=== PATIENT | female | born 1990 | race African-American/Black ===

== ENCOUNTER 2019-08-01 23:44 | Observation (INO) ==
[2019-08-02] MEDS ORDERED: MORPHINE 4 MG/1 ML VIAL IV PRN (02:16)
[2019-08-02] MEDS ORDERED: ONDANSETRON 4 MG/2 ML VIAL IV PRN (02:17)
[2019-08-02] MEDS ORDERED: SODIUM CHLORIDE 0.9% 1,000 ML IV SCH (02:30)
[2019-08-02 05:41] LABS: Basophils % 0.3 % (0.0-0.8); Eosinophils % 0.2 % (0.00-10.9); Hematocrit 36.3 VOL% (35.7-47.0); Immature Granulocytes % 0.4 %; Immature Granulocytes Absolute 0.05 #; Lymphocytes # 1.6 10*3/uL (1.4-4.0); Mean Corpuscular HGB Conc 33.1 GM/DL (32-36); Mean Platelet Volume 11.8 FL (9.6-12.0); Monocytes % 6.3 % (1.7-12.7); Neutrophils % 79.8 % (38.7-73.9); Platelet Count 228 T/CUMM (130-400); Red Blood Count 4.22 MC/CUMM (3.8-5.5); Red Cell Distribution Width 14.2 % (9.3-17.3); White Blood Count 12.2 T/CUMM (4-12)
[2019-08-02 05:42] LABS: Albumin 3.9 G/DL (3.4-5.0); Bilirubin,Total 0.6 MG/DL (0.2-1.0); Calcium 8.8 MG/DL (8.5-10.1); Osmolality,Calculated 278.3 MOS/KG (273-304); Total Protein 7.4 G/DL (6.4-8.3)
[2019-08-02] MEDS ORDERED: LACTATED RINGERS 1,000 ML IV SCH (06:00)
[2019-08-02] MEDS ORDERED: ceFAZolin 1,000 MG VIAL ONE (06:16)
[2019-08-02] MEDS ORDERED: TRIAMCINOLONE ACETONIDE 40 MG/1 ML VIAL ONE (06:20)
[2019-08-02] MEDS ORDERED: propofoL 200 MG/20 ML VIAL IV ONE (06:47)
[2019-08-02] MEDS ORDERED: fentaNYL 100 MCG/2 ML VIAL ONE (06:48)
[2019-08-02] MEDS ORDERED: MIDAZOLAM 2 MG/2 ML VIAL ONE (06:48)
[2019-08-02] MEDS ORDERED: SEVOFLURANE 1 UNIT/15 MINUTE INH ONE (06:48)
[2019-08-02] MEDS ORDERED: DEXAMETHASONE 4 MG/1 ML VIAL ONE (06:48)
[2019-08-02] MEDS ORDERED: LIDOCAINE 2% 5 ML VIAL ONE (06:48)
[2019-08-02] MEDS ORDERED: ONDANSETRON 4 MG/2 ML VIAL ONE (06:49)
[2019-08-02] MEDS: KETOROLAC 30 MG/1 ML VIAL IV SCH ×2 (08:30→15:26)
[2019-08-02] MEDS ORDERED: cephALEXin 500 MG CAPSULE PO SCH (10:30)
[2019-08-02 11:17] VITALS: BP 109/63
[2019-08-02] MEDS ORDERED: INFLUENZA VIRUS VACCINE 0.5 ML SYRINGE IM ONE (14:12)
== END 2019-08-02 15:15 | disposition home or self-care (01) ==
LOC: N.EDINP 23:44 → N.ED 23:44 → N.OB 08-02 03:33
PROVIDERS: ADMIT Obstetrics & Gynecology; ATTEND Obstetrics & Gynecology

== ENCOUNTER 2020-07-01 13:35 | Inpatient (IN) ==
[2020-07-01] MEDS ORDERED: SODIUM CHLORIDE 0.9% 1,000 ML IV STA ×2 (15:56→16:52)
[2020-07-01 16:16] LABS: Basophils % 0.3 % (0.0-0.8); Eosinophils # 0.2 10*3/uL (0.0-0.87); Eosinophils % 2.5 % (0.00-10.9); Hematocrit 39.3 VOL% (35.7-47.0); Hemoglobin 13.4 GM/DL (12.0-16.0); Immature Granulocytes % 0.4 %; Immature Granulocytes Absolute 0.03 #; Lymphocytes # 1.1 10*3/uL (1.4-4.0); Mean Corpuscular HGB Conc 34.1 GM/DL (32-36); Mean Corpuscular Volume 84.3 FL (87-102); Monocytes % 13.2 % (1.7-12.7); Neutrophils % 68.6 % (38.7-73.9); Platelet Count 233 T/CUMM (130-400); Red Blood Count 4.66 MC/CUMM (3.8-5.5); Red Cell Distribution Width 14.2 % (9.3-17.3); White Blood Count 7.3 T/CUMM (4-12)
[2020-07-01 16:23] LABS: Blood, Urine Negative (Negative); Glucose,Urine (UA) Negative (Negative); Ketones,Urine Negative (Negative); Mucus,Urine Occasional /LPF (Occasional); Nitrite,Urine Negative (Negative); Protein,Urine 30 MG/DL; RBC,Urine 16 /HPF (0-4); Squamous Epithelial Cell,Urine Occasional /HPF (0-10); Urine Appearance CLOUDY (Clear); Urine Color Amber (Yellow); Urine Specific Gravity 1.025 (1.001-1.035); WBC,Urine 30 /HPF (0-6)
[2020-07-01 16:24] LABS: Bilirubin,Urine Small mg/dL (Negative)
[2020-07-01 16:37] LABS: Barbiturates Screen,Urine Negative (Negative); Benzodiazepines Screen,Urine Negative (Negative); Cannabinoid Screen,Urine Positive (Negative); Opiate Screen,Urine Negative (Negative); Phencyclidine Screen,Urine Negative (Negative)
[2020-07-01 16:46] LABS: Calcium 9.2 MG/DL (8.5-10.1); Osmolality,Calculated 271.8 MOS/KG (273-304)
[2020-07-01] MEDS ORDERED: cefTRIAXone 1,000 MG in SODIUM CHLORIDE 0.9% 100 ML IV STA (16:51)
[2020-07-01] MEDS ORDERED: cefTRIAXone 1,000 MG VIAL ONE (16:56)
[2020-07-01] MEDS ORDERED: MORPHINE 4 MG/1 ML VIAL IV STA (17:09)
[2020-07-01] MEDS ORDERED: ONDANSETRON 4 MG/2 ML VIAL IV STA (17:09)
[2020-07-01] MEDS ORDERED: DEXTROSE 50% 25 GM/50 ML VIAL IV PRN (18:27)
[2020-07-01] MEDS ORDERED: GLUCAGON 1 MG VIAL IM PRN (18:27)
[2020-07-01 18:43] LABS: Risk Ratio 1.63; VLDL CHOLESTEROL 7.4 MG/DL
[2020-07-01 19:41] LABS: HIV Antigen/Antibody Result Nonreactive (Nonreactive); Hepatitis B Core IgM Quant 0.22 Index; Hepatitis B Surface Ag Quant 0.31 Index; Hepatitis B Surface Ag Result Negative (Negative); Hepatitis C Virus Ab Quant 0.07 Index; Hepatitis C Virus Ab Result Negative (Negative)
[2020-07-01] MEDS: SODIUM CHLORIDE 0.9% 1,000 ML IV SCH (21:42)
[2020-07-01] MEDS: ENOXAPARIN 40 MG/0.4 ML SYRINGE SUBCUT SCH (21:42)
[2020-07-02] MEDS: ONDANSETRON 4 MG/2 ML VIAL IV PRN (05:06)
[2020-07-02] MEDS: MORPHINE 4 MG/1 ML VIAL IV PRN ×2 (05:07→11:18)
[2020-07-02 07:13] LABS: Basophils % 0.4 % (0.0-0.8); Eosinophils # 0.3 10*3/uL (0.0-0.87); Eosinophils % 5.6 % (0.00-10.9); Hematocrit 35.9 VOL% (35.7-47.0); Hemoglobin 11.9 GM/DL (12.0-16.0); Immature Granulocytes % 0.4 %; Immature Granulocytes Absolute 0.02 #; Lymphocytes # 1.4 10*3/uL (1.4-4.0); Lymphocytes % 29.6 % (21.3-54.2); Mean Corpuscular HGB Conc 33.1 GM/DL (32-36); Mean Corpuscular Volume 87.1 FL (87-102); Mean Platelet Volume 11.4 FL (9.6-12.0); Monocytes % 9.6 % (1.7-12.7); Neutrophils % 54.4 % (38.7-73.9); Platelet Count 193 T/CUMM (130-400); Red Blood Count 4.12 MC/CUMM (3.8-5.5); Red Cell Distribution Width 14.5 % (9.3-17.3); White Blood Count 4.8 T/CUMM (4-12)
[2020-07-02 08:05] LABS: Albumin 3.2 G/DL (3.4-5.0); Calcium 8.3 MG/DL (8.5-10.1); Osmolality,Calculated 276.3 MOS/KG (273-304); Total Protein 6.5 G/DL (6.4-8.3)
[2020-07-02] MEDS: PANTOPRAZOLE 40 MG TABLET PO SCH (08:36)
[2020-07-02] MEDS: SODIUM CHLORIDE 0.9% 1,000 ML IV SCH ×4 (09:43→23:58)
[2020-07-02] MEDS: cefTRIAXone 1,000 MG in SYRINGE 1 EACH IV SCH (17:06)
[2020-07-02] MEDS: ENOXAPARIN 40 MG/0.4 ML SYRINGE SUBCUT SCH (21:42)
[2020-07-03] MEDS: MORPHINE 4 MG/1 ML VIAL IV PRN ×3 (06:42→22:19)
[2020-07-03] MEDS: ONDANSETRON 4 MG/2 ML VIAL IV PRN (06:43)
[2020-07-03 06:48] LABS: Basophils % 0.7 % (0.0-0.8); Eosinophils # 0.2 10*3/uL (0.0-0.87); Hematocrit 33.5 VOL% (35.7-47.0); Immature Granulocytes % 0.2 %; Immature Granulocytes Absolute 0.01 #; Lymphocytes # 2.2 10*3/uL (1.4-4.0); Lymphocytes % 48.1 % (21.3-54.2); Mean Corpuscular HGB Conc 32.8 GM/DL (32-36); Mean Platelet Volume 11.9 FL (9.6-12.0); Platelet Count 187 T/CUMM (130-400); Red Blood Count 3.85 MC/CUMM (3.8-5.5); Red Cell Distribution Width 14.4 % (9.3-17.3); White Blood Count 4.6 T/CUMM (4-12)
[2020-07-03 07:23] LABS: Albumin 2.9 G/DL (3.4-5.0); Bilirubin,Total 1.2 MG/DL (0.2-1.0); Calcium 8.4 MG/DL (8.5-10.1); Osmolality,Calculated 270.7 MOS/KG (273-304); Total Protein 5.9 G/DL (6.4-8.3)
[2020-07-03] MEDS: PANTOPRAZOLE 40 MG TABLET PO SCH (09:08)
[2020-07-03] MEDS: SODIUM CHLORIDE 0.9% 1,000 ML IV SCH ×2 (13:15→22:23)
[2020-07-03] MEDS: cefTRIAXone 1,000 MG in SYRINGE 1 EACH IV SCH (17:00)
[2020-07-03] MEDS: ENOXAPARIN 40 MG/0.4 ML SYRINGE SUBCUT SCH (22:15)
[2020-07-04 05:57] LABS: Basophils % 0.7 % (0.0-0.8); Eosinophils # 0.3 10*3/uL (0.0-0.87); Hematocrit 32.9 VOL% (35.7-47.0); Immature Granulocytes % 0.4 %; Immature Granulocytes Absolute 0.02 #; Lymphocytes # 2.2 10*3/uL (1.4-4.0); Lymphocytes % 41.6 % (21.3-54.2); Mean Corpuscular HGB Conc 33.4 GM/DL (32-36); Mean Corpuscular Volume 86.8 FL (87-102); Mean Platelet Volume 11.6 FL (9.6-12.0); Monocytes % 10.8 % (1.7-12.7); Neutrophils % 41.5 % (38.7-73.9); Platelet Count 198 T/CUMM (130-400); Red Blood Count 3.79 MC/CUMM (3.8-5.5); Red Cell Distribution Width 14.4 % (9.3-17.3); White Blood Count 5.4 T/CUMM (4-12)
[2020-07-04 06:18] LABS: Albumin 3.3 G/DL (3.4-5.0); Bilirubin,Total 0.7 MG/DL (0.2-1.0); Calcium 8.7 MG/DL (8.5-10.1); Osmolality,Calculated 273.4 MOS/KG (273-304); Total Protein 6.5 G/DL (6.4-8.3)
[2020-07-04 07:08] LABS: Platelet Estimate Adequate
[2020-07-04 07:09] LABS: Polychromasia Slight
[2020-07-04] MEDS: SODIUM CHLORIDE 0.9% 1,000 ML IV SCH ×2 (09:46→16:39)
[2020-07-04] MEDS: PANTOPRAZOLE 40 MG TABLET PO SCH (09:47)
[2020-07-04] MEDS: cefTRIAXone 1,000 MG in SYRINGE 1 EACH IV SCH (17:11)
[2020-07-04] MEDS: ENOXAPARIN 40 MG/0.4 ML SYRINGE SUBCUT SCH (21:19)
[2020-07-05] MEDS ORDERED: LIDOCAINE 1%/EPI INJ 20 ML VIAL ONE (08:03)
[2020-07-05] MEDS ORDERED: BUPIVACAINE MPF 0.25% 30 ML VIAL ONE (08:03)
[2020-07-05] MEDS ORDERED: TISSUE ADHESIVE 1 EACH APPLICATOR TOP ONE (08:03)
[2020-07-05] MEDS ORDERED: fentaNYL 100 MCG/2 ML VIAL ONE ×2 (08:23→09:53)
[2020-07-05] MEDS ORDERED: MIDAZOLAM 2 MG/2 ML VIAL ONE ×2 (08:23)
[2020-07-05] MEDS ORDERED: ROCURONIUM 50 MG/5 ML VIAL IV ONE (08:24)
[2020-07-05] MEDS ORDERED: LIDOCAINE 2% 5 ML VIAL ONE (08:24)
[2020-07-05] MEDS ORDERED: propofoL 200 MG/20 ML VIAL IV ONE (08:24)
[2020-07-05] MEDS: SODIUM CHLORIDE 0.9% 1,000 ML IV SCH ×4 (08:25→17:47)
[2020-07-05 08:34] LABS: Basophils % 0.4 % (0.0-0.8); Eosinophils # 0.1 10*3/uL (0.0-0.87); Eosinophils % 2.7 % (0.00-10.9); Hematocrit 37.1 VOL% (35.7-47.0); Hemoglobin 12.2 GM/DL (12.0-16.0); Immature Granulocytes % 0.2 %; Immature Granulocytes Absolute 0.01 #; Lymphocytes # 1.7 10*3/uL (1.4-4.0); Lymphocytes % 31.9 % (21.3-54.2); Mean Corpuscular HGB Conc 32.9 GM/DL (32-36); Mean Corpuscular Volume 87.1 FL (87-102); Mean Platelet Volume 11.7 FL (9.6-12.0); Monocytes % 10.9 % (1.7-12.7); Neutrophils % 53.9 % (38.7-73.9); Platelet Count 227 T/CUMM (130-400); Red Blood Count 4.26 MC/CUMM (3.8-5.5); Red Cell Distribution Width 14.2 % (9.3-17.3); White Blood Count 5.2 T/CUMM (4-12)
[2020-07-05 08:57] LABS: Albumin 3.6 G/DL (3.4-5.0); Bilirubin,Total 0.9 MG/DL (0.2-1.0); Calcium 9.1 MG/DL (8.5-10.1); Osmolality,Calculated 273.4 MOS/KG (273-304); Total Protein 7.1 G/DL (6.4-8.3)
[2020-07-05] MEDS ORDERED: DEXAMETHASONE 4 MG/1 ML VIAL ONE (09:36)
[2020-07-05] MEDS ORDERED: ONDANSETRON 4 MG/2 ML VIAL ONE (09:36)
[2020-07-05] MEDS ORDERED: TRIAMCINOLONE ACETONIDE 40 MG/1 ML VIAL ONE (09:45)
[2020-07-05] MEDS ORDERED: KETOROLAC 30 MG/1 ML VIAL ONE (09:49)
[2020-07-05] MEDS ORDERED: LACTATED RINGERS 0 ML IV ONE (10:09)
[2020-07-05] MEDS ORDERED: LACTATED RINGERS 1,000 ML IV ONE (10:09)
[2020-07-05] MEDS ORDERED: GLYCOPYRROLATE 0.4 MG/2 ML VIAL ONE ×2 (10:11)
[2020-07-05] MEDS ORDERED: NEOSTIGMINE 10 MG/10 ML VIAL ONE (10:11)
[2020-07-05] MEDS ORDERED: SEVOFLURANE 1 UNIT/15 MINUTE INH ONE (10:11)
[2020-07-05] MEDS ORDERED: ONDANSETRON 4 MG/2 ML VIAL IV PRN (10:31)
[2020-07-05] MEDS ORDERED: diphenhydrAMINE 50 MG/1 ML VIAL IV PRN (10:31)
[2020-07-05] MEDS ORDERED: PROMETHAZINE INJ 25 MG in SODIUM CHLORIDE 0.9% 50 ML IV PRN (10:31)
[2020-07-05] MEDS: MEPERIDINE 25 MG/1 ML VIAL IV PRN ×2 (10:35→10:52)
[2020-07-05] MEDS: PANTOPRAZOLE 40 MG TABLET PO SCH (11:04)
[2020-07-05] MEDS: MORPHINE 4 MG/1 ML VIAL IV PRN ×2 (13:35→17:44)
[2020-07-05] MEDS: ENOXAPARIN 40 MG/0.4 ML SYRINGE SUBCUT SCH (21:00)
[2020-07-06] MEDS: MORPHINE 4 MG/1 ML VIAL IV PRN ×2 (00:25→09:08)
[2020-07-06] MEDS: SODIUM CHLORIDE 0.9% 1,000 ML IV SCH ×3 (00:26→13:32)
[2020-07-06 06:20] LABS: Basophils % 0.2 % (0.0-0.8); Eosinophils # 0.1 10*3/uL (0.0-0.87); Eosinophils % 0.6 % (0.00-10.9); Hematocrit 33.7 VOL% (35.7-47.0); Hemoglobin 11.1 GM/DL (12.0-16.0); Immature Granulocytes % 0.4 %; Immature Granulocytes Absolute 0.03 #; Lymphocytes # 1.5 10*3/uL (1.4-4.0); Lymphocytes % 17.2 % (21.3-54.2); Mean Corpuscular HGB Conc 32.9 GM/DL (32-36); Mean Corpuscular Volume 87.1 FL (87-102); Mean Platelet Volume 12.4 FL (9.6-12.0); Monocytes % 8.5 % (1.7-12.7); Neutrophils % 73.1 % (38.7-73.9); Platelet Count 202 T/CUMM (130-400); Red Blood Count 3.87 MC/CUMM (3.8-5.5); Red Cell Distribution Width 14.3 % (9.3-17.3); White Blood Count 8.5 T/CUMM (4-12)
[2020-07-06 06:51] LABS: Albumin 2.8 G/DL (3.4-5.0); Bilirubin,Total 0.5 MG/DL (0.2-1.0); Calcium 8.5 MG/DL (8.5-10.1); Osmolality,Calculated 276.4 MOS/KG (273-304); Total Protein 6.1 G/DL (6.4-8.3)
[2020-07-06] MEDS: PANTOPRAZOLE 40 MG TABLET PO SCH (09:08)
[2020-07-06 11:15] VITALS: BP 115/55
== END 2020-07-06 15:00 | disposition home or self-care (01) | DRG 418 ==
LOC: N.ED 13:35 → N.EDINP 18:27 → N.3E 20:21
PROVIDERS: ADMIT Internal Medicine; ATTEND Internal Medicine
PROC: LAPCHOL (2020-07-05 09:16)

== ENCOUNTER 2021-08-23 00:19 | Inpatient (IN) ==
[2021-08-23] MEDS ORDERED: ONDANSETRON 4 MG/2 ML VIAL IV PRN (01:10)
[2021-08-23] MEDS ORDERED: MEPERIDINE 50 MG/1 ML VIAL IV PRN (01:10)
[2021-08-23] MEDS ORDERED: BUTORPHANOL 2 MG/ML VIAL IV PRN (01:10)
[2021-08-23 01:32] LABS: Bacteria,Urine Occasional /HPF (Few); Bilirubin,Urine Negative (Negative); Blood, Urine Negative (Negative); Glucose,Urine (UA) Negative (Negative); Ketones,Urine Negative (Negative); Nitrite,Urine Negative (Negative); Protein,Urine Negative; RBC,Urine 1 /HPF (0-4); Squamous Epithelial Cell,Urine Occasional /HPF (0-10); Urine Appearance CLEAR (Clear); Urine Color Yellow (Yellow); Urine Specific Gravity 1.009 (1.001-1.035); Urine Urobilinogen < 2.0 EU/DL (<2.0)
[2021-08-23 01:54] LABS: Basophils % 0.2 % (0.0-0.8); Eosinophils # 0.2 10*3/uL (0.0-0.87); Eosinophils % 2.3 % (0.00-10.9); Hematocrit 35.4 VOL% (35.7-47.0); Hemoglobin 11.7 GM/DL (12.0-16.0); Immature Granulocytes % 0.6 %; Immature Granulocytes Absolute 0.06 #; Lymphocytes # 2.9 10*3/uL (1.4-4.0); Lymphocytes % 28.8 % (21.3-54.2); Mean Corpuscular HGB Conc 33.1 GM/DL (32-36); Mean Corpuscular Volume 87.4 FL (87-102); Monocytes % 9.5 % (1.7-12.7); Neutrophils % 58.6 % (38.7-73.9); Platelet Count 212 T/CUMM (130-400); Red Blood Count 4.05 MC/CUMM (3.8-5.5); Red Cell Distribution Width 14.7 % (9.3-17.3)
[2021-08-23 03:36] LABS: Alanine Aminotransferase 55 U/L (13-56); Albumin 2.6 G/DL (3.4-5.0); Alkaline Phosphatase 188 U/L (45-117); Aspartate Amino Transferase 19 U/L (0-37); Bilirubin,Total < 0.39 MG/DL (0.20-1.00); Blood Urea Nitrogen 9 MG/DL (7-18); Carbon Dioxide 23 MMOL/L (21-32); Estimated Glom Filtration Rate 142 ML/MIN; Glucose 104 MG/DL (74-106); Osmolality,Calculated 268.1 MOS/KG (273-304); Potassium 3.6 MMOL/L (3.5-5.1); Sodium 135 MMOL/L (136-145); Total Protein 7.1 G/DL (6.4-8.2)
[2021-08-23 05:59] LABS: RPR Confirm - Less than 1 yr REACTIVE (Nonreactive)
[2021-08-23] MEDS ORDERED: hydrOXYzine HCL 25 MG/1 ML VIAL IM PRN (07:37)
[2021-08-23] MEDS ORDERED: ePHEDrine 50 MG/ML VIAL IV PRN (07:37)
[2021-08-23] MEDS ORDERED: LACTATED RINGERS 1,000 ML IV ONE (07:37)
[2021-08-23] MEDS ORDERED: FAMOTIDINE 20 MG/2 ML VIAL IV ONE (07:37)
[2021-08-23] MEDS ORDERED: diphenhydrAMINE 50 MG/1 ML VIAL IV PRN ×2 (07:37)
[2021-08-23] MEDS ORDERED: NALOXONE 0.4 MG/ML VIAL IV PRN (07:37)
[2021-08-23] MEDS ORDERED: CITRIC ACID/SODIUM CITRATE 30 ML UDCUP PO ONE (07:37)
[2021-08-23] MEDS ORDERED: ONDANSETRON 4 MG/2 ML VIAL IV ONE (07:37)
[2021-08-23] MEDS ORDERED: PROMETHAZINE 25 MG/1 ML VIAL IM ONE (07:37)
[2021-08-23] MEDS ORDERED: fentaNYL 2 MCG/ROPIV 0.2% EPID 100 ML EPIDURAL SCH (08:00)
[2021-08-23] MEDS ORDERED: BICILLIN LA 2,400,000 UNIT/4 ML SYRINGE IM STA (08:47)
[2021-08-23] MEDS ORDERED: valACYclovir 500 MG TABLET PO SCH (09:00)
[2021-08-23] MEDS: LACTATED RINGERS 1,000 ML IV SCH ×3 (09:43→11:31)
[2021-08-23 10:54] LABS: Bilirubin,Urine Negative (Negative); Blood, Urine Negative (Negative); Glucose,Urine (UA) Negative (Negative); Ketones,Urine Negative (Negative); Mucus,Urine Occasional /LPF (Occasional); Nitrite,Urine Negative (Negative); Protein,Urine Negative; RBC,Urine <1 /HPF (0-4); Urine Appearance CLEAR (Clear); Urine Color Yellow (Yellow); Urine Specific Gravity 1.008 (1.001-1.035); Urine Urobilinogen < 2.0 EU/DL (<2.0)
[2021-08-23] MEDS ORDERED: OXYTOCIN/LR 20 UNIT/1,000 ML BAG IV SCH (11:00)
[2021-08-23 11:01] LABS: Barbiturates Screen,Urine Negative (Negative); Benzodiazepines Screen,Urine Negative (Negative); Cannabinoid Screen,Urine Negative (Negative); Opiate Screen,Urine Negative (Negative); Phencyclidine Screen,Urine Negative (Negative)
[2021-08-23] MEDS ORDERED: OXYTOCIN/LR 20 UNIT/1,000 ML BAG IV ONE ×2 (11:41→16:39)
[2021-08-23] MEDS ORDERED: miSOPROStoL 200 MCG TABLET ONE (11:41)
[2021-08-23] MEDS ORDERED: CARBOPROST TROMETHAMINE 250 MCG/ML AMP IM ONE (11:41)
[2021-08-23] MEDS ORDERED: METHYLERGONOVINE 0.2 MG/1 ML AMP ONE (11:41)
[2021-08-23] MEDS ORDERED: SODIUM CHLORIDE 0.9% 0 ML IV ONE (11:41)
[2021-08-23] MEDS ORDERED: TRANEXAMIC ACID 1,000 MG/10 ML VIAL ONE (11:41)
[2021-08-23 12:03] LABS: Cord Venous Blood HCO3 25.8 MMOL/L; Cord Venous Blood PCO2 47.9 MMHG; Cord Venous Blood PO2 21.4 MMHG
[2021-08-23] MEDS ORDERED: ACETAMINOPHEN 500 MG TABLET PO PRN (13:07)
[2021-08-23] MEDS ORDERED: ACETAMINOPHEN 325 MG TABLET PO PRN (16:39)
[2021-08-23] MEDS ORDERED: BENZOCAINE 20%/MENTHOL 0.5% SPRAY 56 GM CAN TOP PRN (16:39)
[2021-08-23] MEDS ORDERED: HYDROCORTISONE 2.5% RECTAL CREAM 30 GM TUBE TOP PRN (16:39)
[2021-08-23] MEDS ORDERED: MEASLES/MUMPS/RUBELLA VACCINE 0.5 ML VIAL SUBCUT ONE (16:39)
[2021-08-23] MEDS ORDERED: WITCH HAZEL PADS 100/JAR TOP PRN (16:39)
[2021-08-23] MEDS ORDERED: RHO(D) IMMUNE GLOBULIN 300 MCG SYRINGE IM ONE (16:39)
[2021-08-23] MEDS ORDERED: DIPH/TET/ACEL PERT BOOSTER VACCINE 0.5 ML VIAL IM ONE (16:39)
[2021-08-23] MEDS ORDERED: BISACODYL 10 MG SUPP RECTAL PRN (16:39)
[2021-08-23] MEDS ORDERED: LANOLIN 50% CREAM 0.3 OZ TUBE TOP PRN (16:39)
[2021-08-23] MEDS: IBUPROFEN 800 MG TABLET PO PRN (19:46)
[2021-08-23] MEDS: DOCUSATE SODIUM 100 MG CAPSULE PO SCH (20:28)
[2021-08-23] MEDS: oxyCODONE/ACETAMINOPHEN 5-325 MG TABLET PO PRN (23:35)
[2021-08-24 06:54] LABS: Basophils % 0.3 % (0.0-0.8); Eosinophils # 0.1 10*3/uL (0.0-0.87); Eosinophils % 0.9 % (0.00-10.9); Hemoglobin 12.6 GM/DL (12.0-16.0); Immature Granulocytes % 0.6 %; Immature Granulocytes Absolute 0.08 #; Lymphocytes # 2.8 10*3/uL (1.4-4.0); Lymphocytes % 19.5 % (21.3-54.2); Mean Corpuscular HGB Conc 32.3 GM/DL (32-36); Mean Corpuscular Volume 90.1 FL (87-102); Mean Platelet Volume 11.6 FL (9.6-12.0); Monocytes % 7.5 % (1.7-12.7); Neutrophils % 71.2 % (38.7-73.9); Platelet Count 200 T/CUMM (130-400); Red Blood Count 4.33 MC/CUMM (3.8-5.5); Red Cell Distribution Width 15.1 % (9.3-17.3); White Blood Count 14.4 T/CUMM (4-12)
[2021-08-24] MEDS: DOCUSATE SODIUM 100 MG CAPSULE PO SCH ×3 (08:28→21:03)
[2021-08-24] MEDS: oxyCODONE/ACETAMINOPHEN 5-325 MG TABLET PO PRN ×3 (08:29→22:14)
[2021-08-24] MEDS: IBUPROFEN 800 MG TABLET PO PRN ×3 (08:29→19:33)
[2021-08-25] MEDS: oxyCODONE/ACETAMINOPHEN 5-325 MG TABLET PO PRN (07:55)
[2021-08-25] MEDS: IBUPROFEN 800 MG TABLET PO PRN (07:56)
[2021-08-25] MEDS: DOCUSATE SODIUM 100 MG CAPSULE PO SCH ×2 (07:56)
[2021-08-25] MEDS ORDERED: valACYclovir 500 MG TABLET PO SCH (09:00)
[2021-08-25 09:39] VITALS: BP 100/64
== END 2021-08-25 12:25 | disposition home or self-care (01) | DRG 807 ==
LOC: N.LD 00:19 → N.OB 13:54
PROVIDERS: ADMIT Obstetrics & Gynecology; ATTEND Obstetrics & Gynecology